=== PATIENT | female | born 1955 | race Caucasian/White ===

== ENCOUNTER 2016-07-20 08:02 | Inpatient (IN) | payer BC, OTHER ==
[~2016-07-20] VITALS: Ht 167.6 cm; Wt 65.8 kg
[2016-07-20] MEDS ORDERED: HYDROCODONE/APAP 10/325MG 1 EA TABLET PO ONE (08:30)
[2016-07-20] MEDS ORDERED: HYDROCODONE/APAP 10/325MG 1 EA TABLET ONE (08:32)
[2016-07-20] MEDS ORDERED: LIDOCAINE HCL/PF 1% 30 ML VIAL TP ONE (09:00)
[2016-07-20] MEDS ORDERED: BUPR-51 PO (11:09)
[2016-07-20] MEDS ORDERED: FLUO20CA36 PO (11:09)
[2016-07-20] MEDS ORDERED: LEVO125T8 PO (11:09)
[2016-07-20] MEDS ORDERED: PRIM50TA27 PO (11:09)
[2016-07-20 11:37] LABS: BASOPHILS % (AUTO) 0.7 % (0.0-2.0); DIFF TOTAL % 100 %; EOSINOPHILS % (AUTO) 0.1 % (0.0-6.0); HEMATOCRIT 38 % (33-45); HEMOGLOBIN 12.9 g/dL (11.5-14.8); LYMPHOCYTES # (AUTO) 0.8 /CMM (0.8-4.8); LYMPHOCYTES % (AUTO) 15.9 % (20.0-44.0); MEAN CORPUSCULAR HEMOGLOBIN 35 PG (26.0-33.0); MEAN CORPUSCULAR HGB CONC 34 g/dl (31.0-36.0); MEAN CORPUSCULAR VOLUME 101 fL (82-100); MONOCYTES # (AUTO) 0.3 /CMM (0.1-1.30); MONOCYTES % (AUTO) 6.2 % (2.0-12.0); NEUTROPHILS % (AUTO) 77.1 % (43.0-81.0); PLATELET COUNT (AUTO) 205 /CMM (150-450); RED BLOOD CELL COUNT(AUTO) 3.71 MIL/uL (4.0-5.2); WHITE BLOOD COUNT (AUTO) 5.1 K/uL (4.3-11.0)
[2016-07-20 11:48] LABS: CALCIUM, SERUM 8.6 mg/dL (8.5-10.1); CREATININE 0.7 mg/dL (0.6-1.3); POTASSIUM 4.2 mmol/L (3.5-5.1)
[2016-07-20 12:01] LABS: INR 0.94 (0.87-1.13); PROTHROMBIN TIME 9.9 SECS (9.5-12.7)
[2016-07-20 12:50] VITALS: BP 128/75
[2016-07-20] MEDS: MORPHINE SULFATE INJ 2 MG/ML DISP.SYRIN IV PRN ×3 (13:05→14:49)
[2016-07-20] MEDS ORDERED: ACETAMINOPHEN 325 MG TABLET PO PRN ×2 (14:30→18:00)
[2016-07-20] MEDS ORDERED: BACITRACIN 50000 UNITS/VIAL ONE (15:08)
[2016-07-20 16:00] VITALS: BP 126/72
[2016-07-20] MEDS ORDERED: SUCCINYLCHOLINE CHLORIDE 20 MG/ML VIAL ONE (16:10)
[2016-07-20] MEDS ORDERED: FENTANYL PF 100MCG/2ML AMPUL ONE (16:10)
[2016-07-20] MEDS ORDERED: BUPIVACAINE 0.5 % PF 150 MG/30 ML VIAL ONE (16:44)
[2016-07-20 17:24] VITALS: BP 140/74
[2016-07-20] MEDS ORDERED: ANESTHESIA TRAY IN PYXIS 1 EA TRAY MC ONE (17:32)
[2016-07-20] MEDS ORDERED: ONDANSETRON HCL/PF 4 MG/2 ML VIAL IVP PRN (18:00)
[2016-07-20] MEDS ORDERED: ZOLPIDEM TARTRATE 5 MG TABLET PO PRN (18:00)
[2016-07-20] MEDS ORDERED: HYDROCODONE/APAP 5/325MG 1 EACH TABLET PO PRN (18:00)
[2016-07-20] MEDS ORDERED: Z GUARD REMEDY 2 OZ OINT TP PRN (18:00)
[2016-07-20] MEDS ORDERED: MAGNESIUM HYDROXIDE 30 ML UDC PO PRN (18:00)
[2016-07-20] MEDS ORDERED: MAG HYDROX/AL HYDROX/SIMETH 30 ML UDC PO PRN (18:00)
[2016-07-20] MEDS ORDERED: FLUOXETINE HCL 20 MG CAPSULE PO SCH (18:13)
[2016-07-20 18:14] VITALS: BP 132/72
[2016-07-21] MEDS ORDERED: PANTOPRAZOLE 40 MG TABLET.DR PO SCH (07:30)
[2016-07-21] MEDS ORDERED: FLUOXETINE HCL 20 MG CAPSULE PO SCH (09:00)
[2016-07-21] MEDS ORDERED: LEVOTHYROXINE SODIUM 125 MCG TABLET PO SCH (09:00)
[2016-07-21] MEDS ORDERED: PRIMIDONE 50 MG TABLET PO SCH (09:00)
[2016-07-21] MEDS ORDERED: BUPROPION XL 150 MG TAB.ER.24 PO SCH (09:00)
== END 2016-07-20 18:40 | disposition home or self-care (01) | DRG 563 ==
LOC: ER 08:03 → MEDSG2 11:46
PROVIDERS: ADMIT Family Medicine; ATTEND Family Medicine
PROC: 0PSSXZZ Reposition Left Thumb Phalanx, External Approach (ICD-10-PCS; principal; 2016-07-20 16:19)
DX: S63.115A Dislocation of metacarpophalangeal joint of left thumb, initial encounter (principal); W19.XXXA Unspecified fall, initial encounter; Y92.009 Unspecified place in unspecified non-institutional (private) residence as the place of occurrence of the external cause; E03.9 Hypothyroidism, unspecified; F32.9 Major depressive disorder, single episode, unspecified; F41.9 Anxiety disorder, unspecified; S01.81XA Laceration without foreign body of other part of head, initial encounter
CPT/HCPCS: 36415; 70450-TC; 71010-TC; 73130-TC; 80048-TC; 85025-TC; 85730-TC; 86850-TC; 87081-TC; A4606; A6402; J0330; J2270; J3010; J3490; Z7610